=== PATIENT | female | born 1930 | race Caucasian/White ===

== ENCOUNTER → 2016-10-11 | Outpatient (CLI) | payer MEDICARE ==
[~2016-10-11] MED LIST: ALPR.25T; ASP81TEC PO; CHOL10003; CYAN500L; KETO-22 PO; METO50TA7; MULT-608; NF-METANX PO; PNT40TEC PO
--- NOTE | 2016-10-11 13:25 | Diagnostic Imaging Report ---
PROCEDURE: CT head without contrast. TECHNIQUE: Multiple contiguous axial images were obtained through the brain without the use of intravenous contrast. INDICATION: Headache and poor balance. FINDINGS: There is no intracranial hemorrhage, edema or mass effect. The brain parenchyma and hernandez-white matter differentiation is preserved. There is no extra-axial fluid collection seen. The calvarium, the paranasal sinuses and orbits visualized portions appear unremarkable. IMPRESSION: Unremarkable exam. Dictated by: Dictated on workstation # [id number]
== END ==
LOC: RAD 12:33
PROVIDERS: ATTEND Psychiatry & Neurology Neurology
DX: R51 Headache (principal); R26.81 Unsteadiness on feet
CPT/HCPCS: 70450